=== PATIENT | male | born 1955 | race Caucasian/White ===

== ENCOUNTER → 2019-04-19 13:33 | Outpatient (CLI) | payer BC, SELFPAY ==
--- NOTE | 2019-04-19 | DI.RAD.S_ITS ---
PROCEDURE: XR SHOULDER LT MIN 2V INDICATIONS: Pain in left shoulder TECHNIQUE: 3 views of the shoulder were acquired. COMPARISON: None. FINDINGS: Bones: No fractures or dislocations. No suspicious bony lesions. Visualized ribs appear intact. Moderate AC joint degeneration. Glenohumeral degenerative spurring sclerosis. Soft tissues: Calcific tendinitis noted. IMPRESSION: Left shoulder joint degeneration as above Calcific tendinitis If the patient's pain or other symptoms persist, consider further evaluation with MRI Dictated by: Lavell Swan M.D. on 04/19/2019 at 16:35 Approved by: Lavell Swan M.D. on 04/19/2019 at 16:37
== END ==
DX: M25.512 Pain in left shoulder (principal); M75.32 Calcific tendinitis of left shoulder; M19.012 Primary osteoarthritis, left shoulder
CPT/HCPCS: 73030

== ENCOUNTER → 2022-10-30 09:28 | Outpatient (CLI) | payer MEDICARE, SELFPAY ==
--- NOTE | 2022-10-30 09:29 | DI.RAD.S_ITS ---
PROCEDURE: XR LUMBAR SPINE MIN 4V INDICATIONS: Low back pain w/sciatica for 5 months TECHNIQUE: 5 views of the lumbar spine were acquired, including bilateral oblique views. COMPARISON: None. FINDINGS: Bones: 6 lts-soz-amdstkw vertebrae are present. The 1st 5 jtn-tbr-ttulugx lumbar type vertebrae are referred as L1 through L5. The last nonrib lumbar-type vertebra is referred as transitional S1. There is normal bony alignment. No vertebral body compression fractures. No suspicious bony lesions. Mild degenerative disc and facet disease in lumbar spine. Soft tissues: Overlying bowel gas pattern is normal. No suspicious soft tissue calcifications. Oblique images: No pars defects. IMPRESSION: 1. Transitional anatomy is present. Please confer vertebral levels prior to interventional procedures or surgeries. 2. Mild degenerative disc and facet disease. Dictated by: Jono Torres M.D. on 10/30/2022 at 12:14 Approved by: Jono Torres M.D. on 10/30/2022 at 12:17
== END ==
PROVIDERS: PCP Family Medicine; Referring Provider Family Medicine; Visit Provider Family Medicine
DX: M51.16 Intervertebral disc disorders with radiculopathy, lumbar region (principal); M47.26 Other spondylosis with radiculopathy, lumbar region
CPT/HCPCS: 72110

== ENCOUNTER → 2022-12-20 11:08 | Outpatient (CLI) | payer MEDICARE, SELFPAY ==
--- NOTE | 2022-12-20 11:09 | DI.MRI.S_ITS ---
PROCEDURE: MR LUMBAR SPINE WO CON INDICATIONS: lower back pain TECHNIQUE: Noncontrast sagittal T1 spin echo and T2 fast echo, sagittal STIR, and T2 fast spin echo through the lumbar spine. In cases with scoliosis, additional coronal T2 fast spin echo may be performed. COMPARISON: [facility], CR, XR LUMBAR SPINE MIN 4V, 10/30/2022, 9:37. 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 Alignment: Mild straightening of normal lumbar lordosis. Marrow: No acute fracture. Cord: Terminates in normal position. Cauda equina nerve roots are unremarkable. Soft tissues: No retroperitoneal mass lesion or fluid collection identified. Specific levels: L1-L2: Mild facet arthropathy. No stenosis. L2-L3: Mild diffuse disc bulge. Mild facet arthropathy. No stenosis. L3-L4: Small diffuse disc bulge. Mild facet arthropathy. No stenosis. L4-L5: There is a xmnf-xs-xjfnuxiv diffuse disc bulge and central narrowing. Ygqy-py-wtzmoohs facet arthropathy. Mild narrowing of both subarticular recesses. Mild bilateral neural foraminal narrowing. L5-S1: Toia-bt-xssyomqd diffuse disc bulge. Superimposed left paracentral disc protrusion, significantly affecting the left subarticular recess, displacing the left traversing nerve root. Mild left neural foraminal narrowing. Annular fissure is present. 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 Please confirm numbering prior to any intervention. L5-S1 left paracentral disc protrusion displacing the traversing nerve root. Mild degenerative changes also seen elsewhere. Dictated by: Patrick Navarro M.D. on 12/22/2022 at 11:42 Approved by: Patrick Navarro M.D. on 12/22/2022 at 11:48
== END ==
PROVIDERS: Family Provider Family Medicine; PCP Family Medicine; Referring Provider Physical Medicine & Rehabilitation; Visit Provider Physical Medicine & Rehabilitation
DX: M51.17 Intervertebral disc disorders with radiculopathy, lumbosacral region (principal); M51.16 Intervertebral disc disorders with radiculopathy, lumbar region; M47.26 Other spondylosis with radiculopathy, lumbar region; M47.27 Other spondylosis with radiculopathy, lumbosacral region
CPT/HCPCS: 72148

== ENCOUNTER 2022-12-25 10:00 | Outpatient (RCR) | payer MEDICARE, SELFPAY ==
--- NOTE | 2022-11-12 09:44 | PT.OIE ---
Current Diagnoses Lumbago with sciatica, left side (11/12/22) Past Medical History (Last Updated 11/06/22 @ 20:51 by Jennifer Wilson) Herpes Past Surgical History (Last Updated 11/06/22 @ 20:51 by Jennifer Wilson) Anesthesia History of arthroscopic knee surgery (~1993) Visit Care Team Role Provider Type Isaac Ballesteros MD Attending Provider Physician Family Provider Primary Care Provider Referring Provider Specialty: [facility] Obstetrics Address: [address] [place] [address], [id number] Phone: Fax: Email: [email or web address] Physical Therapy Initial Evaluation PT-OP-A Visit Information Start: 11/12/22 08:47 Freq: Status: Active Protocol: Document 11/12/22 09:32 ED (Rec: 11/12/22 09:44 ED [id number]) Out-Patient Physical Therapy Visit Information Visit Information Visit Type Initial Evaluation Visit Start Time 09:00 Visit Stop Time 09:45 Total Visit Minutes 45 Visit Number 1 Evaluation Information Evaluation Date 11/12/22 PT-OP-B Current Condition Start: 11/12/22 08:47 Freq: Status: Active Protocol: Document 11/12/22 09:32 ED (Rec: 11/12/22 09:44 ED [id number]) Current Condition History of Current Condition Onset Date May Current Complaints low back pain History of Current Condition Pt states that he has had low back pain since around May 2022. He notes that the pain is constant and he spends a large part of his day lying down d/t back pain. He has tried acupuncture which helped somewhat but also the senior specialist told him to stop eating dairy and sugars as they are pro-inflammatory. Pt denies having tried any particular exercises at home for pain relief or rehabilitation purposes. he does endorse L radicular pain down the back of his leg and into his calf. He notes that he will notice those symptoms when he is standing for too long as well. PT-OP-C Subjective Start: 11/12/22 08:47 Freq: Status: Active Protocol: Document 11/12/22 09:32 ED (Rec: 11/12/22 09:44 ED [id number]) Patient Questionnaires Oswestry Low Back Index Oswestry Score 36 / 50 = 72.0 % Oswestry Impairment 60 to 79% Impaired (Score 60- 79) PT-OP-K Range of Motion Start: 11/12/22 08:47 Freq: Status: Active Protocol: Document 11/12/22 09:32 ED (Rec: 11/12/22 09:44 ED [id number]) Lumbar Spine Range of Motion Lumbar Spine Active Testing Position Sitting Flexion 35 Extension 5 ROM Limitations Pain PT-OP-L Special Tests Start: 11/12/22 08:47 Freq: Status: Active Protocol: Document 11/12/22 09:32 ED (Rec: 11/12/22 09:44 ED [id number]) Special Tests Lumbar Spine Special Tests Slump Test Results + PT-OP-T Assessment and Plan Start: 11/12/22 08:47 Freq: Status: Active Protocol: Document 11/12/22 09:32 ED (Rec: 11/12/22 09:44 ED [id number]) Physical Therapy Assessment Rehab Potential Rehabilitation Potential Good Evaluation Complexity Number of Personal Factors/Comorbidities 1-2 Number of Body Systems Impaired 1-2 Clinical Presentation at Evaluation Stable Impairments Impairments Functional Activities,Gait, Pain,ROM,Strength,Transfers Goals Oswestry Impairment oswestry Worm Packer Goal (LTG) Pt will improve Oswestry score by >10 points to a score <26/ 50. LTG Duration 6-8 weeks walking tolerance Impairment walking toleranc Short Term Goal (STG) Pt will be able to ambulate for 10 consecutive minutes c/o low back symptoms. STG Duration 3 weeks Detention Goal (LTG) Pt will be able to ambulate for 20 consecutive minutes c/o low back symptoms. LTG Duration 6-8 weeks % improvement Impairment % improvement Short Term Goal (STG) Pt will report 15% improvement in low back pain intensity/ frequency. STG Duration 3 weeks Detention Goal (LTG) Pt will report 50% improvement in low back pain intensity/ frequency. LTG Duration 6-8 weeks HEP Impairment HEP Short Term Goal (STG) Pt will report performing HEP >4 days/week. STG Duration 3 weeks Worm Packer Goal (LTG) Pt will report performing HEP >4 days/week. LTG Duration 6-8 weeks Assessment Summary Assessment Pt reported to PT for chronic back pain that started around May. The pain has impacted his functional mobility and he is spending a larger portion of his day sedentary. Per subjective reports, it does sound like a disc herniation which has also resulted in radiculopathy down his leg at times. PT and patient spoke at length regarding low back pain and conservative management of it including graded exercise within his tolerance. PT provided initial HEP of : short and frequent walking, hip bridges, seated lumbar flexion, and sciatic nerve glides which he was able to perform today c/o irritation. Physical Therapy Plan Frequency and Duration Frequency of Treatment 2x/Week Duration of treatment (weeks) 10 Plan of Care Start Date 11/12/22 Plan of Care End Date 02/10/23 Therapeutic Interventions Therapeutic Interventions Gait Training,Home Exercise Program,Joint Mobilizations, Manual Therapy,Neuromuscular Re-education,Orthotic/ Prosthetic Management,Patient/ Caregiver Education,Self-Care/ Home Management,Soft Tissue Mobilization,Taping, Therapeutic Activities, Therapeutic Exercises Modalities Biofeedback,Cold Pack/Ice Massage,Electric Stimulation, Hot Packs,Ultrasound Next Visit Focus/Plan Next Note Type Treatment Note Next Visit Plan TM, HEP ( bridge, sciatic glides, lumbar flexion), sit<> stands, standing extension, rows, walk
--- NOTE | 2022-11-12 09:44 | PT.OPPOC ---
Physical, Occupational & Speech Therapy At [facility] Current Diagnoses Lumbago with sciatica, left side (11/12/22) Visit Care Team Role Provider Type Isaac Ballesteros MD Attending Provider Physician Family Provider Primary Care Provider Referring Provider Specialty: Family Practice Obstetrics Address: [facility] [place] [place], [address] Phone: Fax: Email: [email or web address] Plan Of Care PT-OP-T Assessment and Plan Start: 11/12/22 08:47 Freq: Status: Active Protocol: Document 11/12/22 09:32 ED (Rec: 11/12/22 09:44 ED [id number]) Physical Therapy Assessment Rehab Potential Rehabilitation Potential Good Evaluation Complexity Number of Personal Factors/Comorbidities 1-2 Number of Body Systems Impaired 1-2 Clinical Presentation at Evaluation Stable Impairments Impairments Functional Activities,Gait, Pain,ROM,Strength,Transfers Goals Oswestry Impairment oswestry Director Of Cardiopulmonary Services Goal (LTG) Pt will improve Oswestry score by >10 points to a score <26/ 50. LTG Duration 6-8 weeks walking tolerance Impairment walking toleranc Short Term Goal (STG) Pt will be able to ambulate for 10 consecutive minutes c/o low back symptoms. STG Duration 3 weeks Director Of Cardiopulmonary Services Goal (LTG) Pt will be able to ambulate for 20 consecutive minutes c/o low back symptoms. LTG Duration 6-8 weeks % improvement Impairment % improvement Short Term Goal (STG) Pt will report 15% improvement in low back pain intensity/ frequency. STG Duration 3 weeks Director Of Cardiopulmonary Services Goal (LTG) Pt will report 50% improvement in low back pain intensity/ frequency. LTG Duration 6-8 weeks HEP Impairment HEP Short Term Goal (STG) Pt will report performing HEP >4 days/week. STG Duration 3 weeks Director Of Cardiopulmonary Services Goal (LTG) Pt will report performing HEP >4 days/week. LTG Duration 6-8 weeks Assessment Summary Assessment Pt reported to PT for chronic back pain that started around May. The pain has impacted his functional mobility and he is spending a larger portion of his day sedentary. Per subjective reports, it does sound like a disc herniation which has also resulted in radiculopathy down his leg at times. PT and patient spoke at length regarding low back pain and conservative management of it including graded exercise within his tolerance. PT provided initial HEP of : short and frequent walking, hip bridges, seated lumbar flexion, and sciatic nerve glides which he was able to perform today c/o irritation. Physical Therapy Plan Frequency and Duration Frequency of Treatment 2x/Week Duration of treatment (weeks) 10 Plan of Care Start Date 11/12/22 Plan of Care End Date 02/10/23 Therapeutic Interventions Therapeutic Interventions Gait Training,Home Exercise Program,Joint Mobilizations, Manual Therapy,Neuromuscular Re-education,Orthotic/ Prosthetic Management,Patient/ Caregiver Education,Self-Care/ Home Management,Soft Tissue Mobilization,Taping, Therapeutic Activities, Therapeutic Exercises Modalities Biofeedback,Cold Pack/Ice Massage,Electric Stimulation, Hot Packs,Ultrasound Next Visit Focus/Plan Next Note Type Treatment Note Next Visit Plan TM, HEP ( bridge, sciatic glides, lumbar flexion), sit<> stands, standing extension, rows, walk Plan of Care Dates Plan of Care Start Date 11/12/22 Plan of Care End Date 02/10/23 Electronically Signed by: Cameron Wilson, PT 11/12/22 0944 If you are in agreement with this Plan of Care, please return a signed and dated copy. I have reviewed this Plan of Care and certify that the skilled therapy services above are required to meet the patient?s needs. Physician Signature Date Printed Name and Credentials Clinical Instructor Signature Printed Name and Credentials
--- NOTE | 2022-11-19 09:51 | PT.OTN ---
Current Diagnoses Lumbago with sciatica, left side (11/19/22) Physical Therapy Treatment Note PT-OP-A Visit Information Start: 11/12/22 08:47 Freq: Status: Active Protocol: Document 11/19/22 09:48 ED (Rec: 11/19/22 09:51 ED [id number]) Out-Patient Physical Therapy Visit Information Visit Information Visit Type Treatment Note Visit Note 03/28 Visit Start Time 09:00 Visit Stop Time 09:45 Total Visit Minutes 45 Visit Number 2 PT-OP-B Current Condition Start: 11/12/22 08:47 Freq: Status: Active Protocol: Document 11/12/22 09:32 ED (Rec: 11/12/22 09:44 ED [id number]) Current Condition History of Current Condition Onset Date May Current Complaints low back pain History of Current Condition Pt states that he has had low back pain since around May 2022. He notes that the pain is constant and he spends a large part of his day lying down d/t back pain. He has tried acupuncture which helped somewhat but also the jigger machine operator told him to stop eating dairy and sugars as they are pro-inflammatory. Pt denies having tried any particular exercises at home for pain relief or rehabilitation purposes. he does endorse L radicular pain down the back of his leg and into his calf. He notes that he will notice those symptoms when he is standing for too long as well. PT-OP-C Subjective Start: 11/12/22 08:47 Freq: Status: Active Protocol: Document 11/19/22 09:48 ED (Rec: 11/19/22 09:51 ED [id number]) OP-PT Subjective Patient Comments Patient Comments Pt states that he has been doing his HEP. Notes pain and difficulty c/ hip bridges. PT-OP-K Range of Motion Start: 11/12/22 08:47 Freq: Status: Active Protocol: Document 11/12/22 09:32 ED (Rec: 11/12/22 09:44 ED [id number]) Lumbar Spine Range of Motion Lumbar Spine Active Testing Position Sitting Flexion 35 Extension 5 ROM Limitations Pain PT-OP-L Special Tests Start: 11/12/22 08:47 Freq: Status: Active Protocol: Document 11/12/22 09:32 ED (Rec: 11/12/22 09:44 ED [id number]) Special Tests Lumbar Spine Special Tests Slump Test Results + PT-OP-Q Treatments Start: 11/12/22 08:47 Freq: Status: Active Protocol: Document 11/19/22 09:48 ED (Rec: 11/19/22 09:51 ED [id number]) Cardio Equipment Treadmill Duration (Minutes) 5 Speed 4 Incline 1.8 Other beginning & end Therapeutic Exercises Supine Exercises PB flexion Reps/Minutes 2x10 hip bridge Reps/Minutes [id number] Sitting Exercises lat pull down Resistance L3 Reps/Minutes 7u64-31 PB lumbar flexion Equipment Used PB Reps/Minutes 6u46-86 Therapeutic Activity Therapeutic Activity squat Reps/Minutes 7v14-23 PT-OP-T Assessment and Plan Start: 11/12/22 08:47 Freq: Status: Active Protocol: Document 11/19/22 09:48 ED (Rec: 11/19/22 09:51 ED [id number]) Physical Therapy Assessment Goals Oswestry Impairment oswestry Coater Slate Goal (LTG) Pt will improve Oswestry score by >10 points to a score <26/ 50. LTG Duration 6-8 weeks walking tolerance Impairment walking toleranc Short Term Goal (STG) Pt will be able to ambulate for 10 consecutive minutes c/o low back symptoms. STG Duration 3 weeks Usp Goal (LTG) Pt will be able to ambulate for 20 consecutive minutes c/o low back symptoms. LTG Duration 6-8 weeks % improvement Impairment % improvement Short Term Goal (STG) Pt will report 15% improvement in low back pain intensity/ frequency. STG Duration 3 weeks Usp Goal (LTG) Pt will report 50% improvement in low back pain intensity/ frequency. LTG Duration 6-8 weeks HEP Impairment HEP Short Term Goal (STG) Pt will report performing HEP >4 days/week. STG Duration 3 weeks Coater Slate Goal (LTG) Pt will report performing HEP >4 days/week. LTG Duration 6-8 weeks Assessment Summary Assessment Pt able to perform hip bridges with reduced ROM today; he was likely limited in ability at home as he was doing it on his bed. He had some short lasting pain during the initial reps of many exercises today but was later able to them c/o pain. Physical Therapy Plan Frequency and Duration Frequency of Treatment 2x/Week Duration of treatment (weeks) 10 Plan of Care Start Date 11/12/22 Plan of Care End Date 12/26/23 Therapeutic Interventions Therapeutic Interventions Gait Training,Home Exercise Program,Joint Mobilizations, Manual Therapy,Neuromuscular Re-education,Orthotic/ Prosthetic Management,Patient/ Caregiver Education,Self-Care/ Home Management,Soft Tissue Mobilization,Taping, Therapeutic Activities, Therapeutic Exercises Modalities Biofeedback,Cold Pack/Ice Massage,Electric Stimulation, Hot Packs,Ultrasound Next Visit Focus/Plan Next Note Type Treatment Note Next Visit Plan TM, HEP ( bridge, sciatic glides, lumbar flexion), sit<> stands, standing extension, rows, walk
--- NOTE | 2022-11-25 10:41 | PT.OTN ---
Current Diagnoses Lumbago with sciatica, left side (11/25/22) Physical Therapy Treatment Note PT-OP-A Visit Information Start: 11/12/22 08:47 Freq: Status: Active Protocol: Document 11/25/22 10:34 ED (Rec: 11/25/22 10:41 ED [id number]) Out-Patient Physical Therapy Visit Information Visit Information Visit Type Treatment Note Visit Note 04/25 Visit Start Time 09:55 Visit Stop Time 10:35 Total Visit Minutes 40 Visit Number 3 PT-OP-B Current Condition Start: 11/12/22 08:47 Freq: Status: Active Protocol: Document 11/12/22 09:32 ED (Rec: 11/12/22 09:44 ED [id number]) Current Condition History of Current Condition Onset Date May Current Complaints low back pain History of Current Condition Pt states that he has had low back pain since around May 2022. He notes that the pain is constant and he spends a large part of his day lying down d/t back pain. He has tried acupuncture which helped somewhat but also the manager express told him to stop eating dairy and sugars as they are pro-inflammatory. Pt denies having tried any particular exercises at home for pain relief or rehabilitation purposes. he does endorse L radicular pain down the back of his leg and into his calf. He notes that he will notice those symptoms when he is standing for too long as well. PT-OP-C Subjective Start: 11/12/22 08:47 Freq: Status: Active Protocol: Document 11/25/22 10:34 ED (Rec: 11/25/22 10:41 ED [id number]) OP-PT Subjective Patient Comments Patient Comments Pt states that he had discomfort the day following PT last week; he states his quadriceps were very sore. Pt feels like his hips are out of alignment and that's why his back hurts and he has radiculopathy. PT-OP-K Range of Motion Start: 11/12/22 08:47 Freq: Status: Active Protocol: Document 11/12/22 09:32 ED (Rec: 11/12/22 09:44 ED [id number]) Lumbar Spine Range of Motion Lumbar Spine Active Testing Position Sitting Flexion 35 Extension 5 ROM Limitations Pain PT-OP-L Special Tests Start: 11/12/22 08:47 Freq: Status: Active Protocol: Document 11/12/22 09:32 ED (Rec: 11/12/22 09:44 ED [id number]) Special Tests Lumbar Spine Special Tests Slump Test Results + PT-OP-Q Treatments Start: 11/12/22 08:47 Freq: Status: Active Protocol: Document 11/25/22 10:34 ED (Rec: 11/25/22 10:41 ED [id number]) Cardio Equipment Treadmill Duration (Minutes) 5 Speed 4 Incline 1.8 Other beginning & end Therapeutic Exercises Supine Exercises PB flexion Reps/Minutes 2x10 hip bridge Reps/Minutes 1w90-60 Sitting Exercises PB lumbar flexion Equipment Used PB Reps/Minutes 9s35-01 Therapeutic Activity Therapeutic Activity hip hinge Name RDL to 8'' platform Reps/Minutes 1x12 Comments 7# squat Reps/Minutes [id number] Comments hugging basketball PT-OP-T Assessment and Plan Start: 11/12/22 08:47 Freq: Status: Active Protocol: Document 11/25/22 10:34 ED (Rec: 11/25/22 10:41 ED [id number]) Physical Therapy Assessment Goals Oswestry Impairment oswestry Reed Polisher Goal (LTG) Pt will improve Oswestry score by >10 points to a score <26/ 50. LTG Duration 6-8 weeks walking tolerance Impairment walking toleranc Short Term Goal (STG) Pt will be able to ambulate for 10 consecutive minutes c/o low back symptoms. STG Duration 3 weeks Reed Polisher Goal (LTG) Pt will be able to ambulate for 20 consecutive minutes c/o low back symptoms. LTG Duration 6-8 weeks % improvement Impairment % improvement Short Term Goal (STG) Pt will report 15% improvement in low back pain intensity/ frequency. STG Duration 3 weeks Reed Polisher Goal (LTG) Pt will report 50% improvement in low back pain intensity/ frequency. LTG Duration 6-8 weeks HEP Impairment HEP Short Term Goal (STG) Pt will report performing HEP >4 days/week. STG Duration 3 weeks Detention Goal (LTG) Pt will report performing HEP >4 days/week. LTG Duration 6-8 weeks Assessment Summary Assessment Pt performed exercises similar to last session which I anticipate will result in less muscle soreness in following day. Pt does exhibit learned behavior towards passive modalities for musculoskeletal care such as cupping and dry needling which may impact his outlook of PT being helpful for back pain. Pt does show decreased ability for thoracolumbar rotation as he log rolls during bed mobility. Physical Therapy Plan Frequency and Duration Frequency of Treatment 2x/Week Duration of treatment (weeks) 10 Plan of Care Start Date 11/12/22 Plan of Care End Date 02/10/23 Therapeutic Interventions Therapeutic Interventions Gait Training,Home Exercise Program,Joint Mobilizations, Manual Therapy,Neuromuscular Re-education,Orthotic/ Prosthetic Management,Patient/ Caregiver Education,Self-Care/ Home Management,Soft Tissue Mobilization,Taping, Therapeutic Activities, Therapeutic Exercises Modalities Biofeedback,Cold Pack/Ice Massage,Electric Stimulation, Hot Packs,Ultrasound Next Visit Focus/Plan Next Note Type Treatment Note Next Visit Plan TM, HEP ( bridge, sciatic glides, lumbar flexion), sit<> stands, standing extension, rows, walk
--- NOTE | 2022-11-27 10:51 | PT.OTN ---
Current Diagnoses Lumbago with sciatica, left side (11/27/22) Physical Therapy Treatment Note PT-OP-A Visit Information Start: 11/12/22 08:47 Freq: Status: Active Protocol: Document 11/27/22 10:43 ED (Rec: 11/27/22 10:51 ED [id number]) Out-Patient Physical Therapy Visit Information Visit Information Visit Type Treatment Note Visit Note 05/26 Visit Start Time 10:00 Visit Stop Time 10:45 Total Visit Minutes 45 Visit Number 4 PT-OP-B Current Condition Start: 11/12/22 08:47 Freq: Status: Active Protocol: Document 11/12/22 09:32 ED (Rec: 11/12/22 09:44 ED [id number]) Current Condition History of Current Condition Onset Date May Current Complaints low back pain History of Current Condition Pt states that he has had low back pain since around May 2022. He notes that the pain is constant and he spends a large part of his day lying down d/t back pain. He has tried acupuncture which helped somewhat but also the spring forger told him to stop eating dairy and sugars as they are pro-inflammatory. Pt denies having tried any particular exercises at home for pain relief or rehabilitation purposes. he does endorse L radicular pain down the back of his leg and into his calf. He notes that he will notice those symptoms when he is standing for too long as well. PT-OP-C Subjective Start: 11/12/22 08:47 Freq: Status: Active Protocol: Document 11/27/22 10:43 ED (Rec: 11/27/22 10:51 ED [id number]) OP-PT Subjective Patient Comments Patient Comments Pt unsure if he wants to continue with physical therapy . States he saw his PCP and is now scheduled for an MRI. He has a consultation with a back pain specialist as well. PT-OP-K Range of Motion Start: 11/12/22 08:47 Freq: Status: Active Protocol: Document 11/12/22 09:32 ED (Rec: 11/12/22 09:44 ED [id number]) Lumbar Spine Range of Motion Lumbar Spine Active Testing Position Sitting Flexion 35 Extension 5 ROM Limitations Pain PT-OP-L Special Tests Start: 11/12/22 08:47 Freq: Status: Active Protocol: Document 11/12/22 09:32 ED (Rec: 11/12/22 09:44 ED [id number]) Special Tests Lumbar Spine Special Tests Slump Test Results + PT-OP-Q Treatments Start: 11/12/22 08:47 Freq: Status: Active Protocol: Document 11/27/22 10:43 ED (Rec: 11/27/22 10:51 ED [id number]) Cardio Equipment Treadmill Duration (Minutes) 5 Speed 4 Incline 1.8 Other beginning Therapeutic Exercises Supine Exercises LTR Reps/Minutes 2x10 PB flexion Reps/Minutes 4x10 hip bridge Reps/Minutes [id number] Prone Exercises quadruped hip stretch Prone Exercise Name post hip capsule stretch Reps/Minutes 2x30'' press up <> chetan pose Reps/Minutes 2x10 Sitting Exercises lat pull down Resistance L3 Reps/Minutes 2y21-84 PB lumbar flexion Equipment Used PB Reps/Minutes 2n17-03 Standing Exercises hip flexion Standing Exercise Name banded hip flexion Resistance yllw loop Reps/Minutes 1x8/leg Therapeutic Activity Therapeutic Activity hip hinge Name RDL to 4'' platform Reps/Minutes 2x10 Comments small ball PT-OP-T Assessment and Plan Start: 11/12/22 08:47 Freq: Status: Active Protocol: Document 11/27/22 10:43 ED (Rec: 11/27/22 10:51 ED [id number]) Physical Therapy Assessment Goals Oswestry Impairment oswestry Passenger Solicitor Goal (LTG) Pt will improve Oswestry score by >10 points to a score <26/ 50. LTG Duration 6-8 weeks walking tolerance Impairment walking toleranc Short Term Goal (STG) Pt will be able to ambulate for 10 consecutive minutes c/o low back symptoms. STG Duration 3 weeks Prison Goal (LTG) Pt will be able to ambulate for 20 consecutive minutes c/o low back symptoms. LTG Duration 6-8 weeks % improvement Impairment % improvement Short Term Goal (STG) Pt will report 15% improvement in low back pain intensity/ frequency. STG Duration 3 weeks Prison Goal (LTG) Pt will report 50% improvement in low back pain intensity/ frequency. LTG Duration 6-8 weeks HEP Impairment HEP Short Term Goal (STG) Pt will report performing HEP >4 days/week. STG Duration 3 weeks Passenger Solicitor Goal (LTG) Pt will report performing HEP >4 days/week. LTG Duration 6-8 weeks Assessment Summary Assessment At conclusion of PT today, patient stated that he was happy with the progressions in the exercise and would like to schedule additional visits. pt is displaying fear avoidance behaviors and kinesiophobia in regards to moving the back. PT has slowly progressed patient in exposure to these movement patterns such as lumbopelvic extension and rotation. Pt surprised by his ability to perform LTRs today. he seems to have a better understanding of rehabilitation process now . Physical Therapy Plan Frequency and Duration Frequency of Treatment 2x/Week Duration of treatment (weeks) 10 Plan of Care Start Date 11/12/22 Plan of Care End Date 02/10/23 Therapeutic Interventions Therapeutic Interventions Gait Training,Home Exercise Program,Joint Mobilizations, Manual Therapy,Neuromuscular Re-education,Orthotic/ Prosthetic Management,Patient/ Caregiver Education,Self-Care/ Home Management,Soft Tissue Mobilization,Taping, Therapeutic Activities, Therapeutic Exercises Modalities Biofeedback,Cold Pack/Ice Massage,Electric Stimulation, Hot Packs,Ultrasound Next Visit Focus/Plan Next Note Type Treatment Note Next Visit Plan TM, HEP ( bridge, sciatic glides, lumbar flexion), sit<> stands, standing extension, rows, walk
--- NOTE | 2022-12-05 08:57 | PT.OTN ---
Current Diagnoses Lumbago with sciatica, left side (12/05/22) Physical Therapy Treatment Note PT-OP-A Visit Information Start: 11/12/22 08:47 Freq: Status: Active Protocol: Document 12/05/22 08:52 ED (Rec: 12/05/22 08:57 ED [id number]) Out-Patient Physical Therapy Visit Information Visit Information Visit Type Treatment Note Visit Note 06/25 Visit Start Time 08:15 Visit Stop Time 08:55 Total Visit Minutes 40 Visit Number 5 PT-OP-B Current Condition Start: 11/12/22 08:47 Freq: Status: Active Protocol: Document 11/12/22 09:32 ED (Rec: 11/12/22 09:44 ED [id number]) Current Condition History of Current Condition Onset Date May Current Complaints low back pain History of Current Condition Pt states that he has had low back pain since around May 2022. He notes that the pain is constant and he spends a large part of his day lying down d/t back pain. He has tried acupuncture which helped somewhat but also the apiculturist told him to stop eating dairy and sugars as they are pro-inflammatory. Pt denies having tried any particular exercises at home for pain relief or rehabilitation purposes. he does endorse L radicular pain down the back of his leg and into his calf. He notes that he will notice those symptoms when he is standing for too long as well. PT-OP-C Subjective Start: 11/12/22 08:47 Freq: Status: Active Protocol: Document 12/05/22 08:52 ED (Rec: 12/05/22 08:57 ED [id number]) OP-PT Subjective Patient Comments Patient Comments Pt states that he is still having glute tightness and his L hip feels like it wants to pop out. He states he doesn't like the bridges b/c it makes his glutes even tighter. Is wanting to get an MRI. PT-OP-K Range of Motion Start: 11/12/22 08:47 Freq: Status: Active Protocol: Document 11/12/22 09:32 ED (Rec: 11/12/22 09:44 ED [id number]) Lumbar Spine Range of Motion Lumbar Spine Active Testing Position Sitting Flexion 35 Extension 5 ROM Limitations Pain PT-OP-L Special Tests Start: 11/12/22 08:47 Freq: Status: Active Protocol: Document 11/12/22 09:32 ED (Rec: 11/12/22 09:44 ED [id number]) Special Tests Lumbar Spine Special Tests Slump Test Results + PT-OP-Q Treatments Start: 11/12/22 08:47 Freq: Status: Active Protocol: Document 12/05/22 08:52 ED (Rec: 12/05/22 08:57 ED [id number]) Cardio Equipment Elliptical Duration (Minutes) 5 Resistance 5 Treadmill Duration (Minutes) 5 Speed 4 Incline 1.8 Other beginning Therapeutic Exercises Sitting Exercises PB lumbar flexion Equipment Used PB Reps/Minutes 0n20-04 Standing Exercises row Standing Exercise Name unilateral row Resistance L4 Equipment Used cable column Reps/Minutes 4x10 Therapeutic Activity Therapeutic Activity hip hinge Name RDL to 4'' platform Reps/Minutes 4x10 Comments 10# B stance RDL c/ small tball PT-OP-T Assessment and Plan Start: 11/12/22 08:47 Freq: Status: Active Protocol: Document 12/05/22 08:52 ED (Rec: 12/05/22 08:57 ED [id number]) Physical Therapy Assessment Goals Oswestry Impairment oswestry Mission Coordinator Goal (LTG) Pt will improve Oswestry score by >10 points to a score <26/ 50. LTG Duration 6-8 weeks walking tolerance Impairment walking toleranc Short Term Goal (STG) Pt will be able to ambulate for 10 consecutive minutes c/o low back symptoms. STG Duration 3 weeks Mission Coordinator Goal (LTG) Pt will be able to ambulate for 20 consecutive minutes c/o low back symptoms. LTG Duration 6-8 weeks % improvement Impairment % improvement Short Term Goal (STG) Pt will report 15% improvement in low back pain intensity/ frequency. STG Duration 3 weeks Snf Goal (LTG) Pt will report 50% improvement in low back pain intensity/ frequency. LTG Duration 6-8 weeks HEP Impairment HEP Short Term Goal (STG) Pt will report performing HEP >4 days/week. STG Duration 3 weeks Mission Coordinator Goal (LTG) Pt will report performing HEP >4 days/week. LTG Duration 6-8 weeks Assessment Summary Assessment Worked on more back and hip hinging movements to desensitize patient to forward flexion with and without external loading. Pt still sensitive to lumbopelvic extension movement; states that it makes his L leg tingle . Otherwise patient able to do all movements today without pain. Physical Therapy Plan Frequency and Duration Frequency of Treatment 2x/Week Duration of treatment (weeks) 10 Plan of Care Start Date 11/12/22 Plan of Care End Date 02/10/23 Therapeutic Interventions Therapeutic Interventions Gait Training,Home Exercise Program,Joint Mobilizations, Manual Therapy,Neuromuscular Re-education,Orthotic/ Prosthetic Management,Patient/ Caregiver Education,Self-Care/ Home Management,Soft Tissue Mobilization,Taping, Therapeutic Activities, Therapeutic Exercises Modalities Biofeedback,Cold Pack/Ice Massage,Electric Stimulation, Hot Packs,Ultrasound Next Visit Focus/Plan Next Note Type Treatment Note Next Visit Plan TM, HEP ( bridge, sciatic glides, lumbar flexion), sit<> stands, standing extension, rows, walk
--- NOTE | 2022-12-10 09:47 | PT.OTN ---
Current Diagnoses Lumbago with sciatica, left side (12/10/22) Physical Therapy Treatment Note PT-OP-A Visit Information Start: 11/12/22 08:47 Freq: Status: Active Protocol: Document 12/10/22 09:43 ED (Rec: 12/10/22 09:47 ED [id number]) Out-Patient Physical Therapy Visit Information Visit Information Visit Type Treatment Note Visit Note 07/26 Visit Start Time 09:00 Visit Stop Time 09:45 Total Visit Minutes 45 Visit Number 6 PT-OP-B Current Condition Start: 11/12/22 08:47 Freq: Status: Active Protocol: Document 11/12/22 09:32 ED (Rec: 11/12/22 09:44 ED [id number]) Current Condition History of Current Condition Onset Date May Current Complaints low back pain History of Current Condition Pt states that he has had low back pain since around May 2022. He notes that the pain is constant and he spends a large part of his day lying down d/t back pain. He has tried acupuncture which helped somewhat but also the certified surgical tech/first assistant told him to stop eating dairy and sugars as they are pro-inflammatory. Pt denies having tried any particular exercises at home for pain relief or rehabilitation purposes. he does endorse L radicular pain down the back of his leg and into his calf. He notes that he will notice those symptoms when he is standing for too long as well. PT-OP-C Subjective Start: 11/12/22 08:47 Freq: Status: Active Protocol: Document 12/10/22 09:43 ED (Rec: 12/10/22 09:47 ED [id number]) OP-PT Subjective Patient Comments Patient Comments Pt states that his back is feeling better. His left hip, which has had on and off again pain for a while, is more symptomatic recently. PT-OP-K Range of Motion Start: 11/12/22 08:47 Freq: Status: Active Protocol: Document 11/12/22 09:32 ED (Rec: 11/12/22 09:44 ED [id number]) Lumbar Spine Range of Motion Lumbar Spine Active Testing Position Sitting Flexion 35 Extension 5 ROM Limitations Pain PT-OP-L Special Tests Start: 11/12/22 08:47 Freq: Status: Active Protocol: Document 11/12/22 09:32 ED (Rec: 11/12/22 09:44 ED [id number]) Special Tests Lumbar Spine Special Tests Slump Test Results + PT-OP-Q Treatments Start: 11/12/22 08:47 Freq: Status: Active Protocol: Document 12/10/22 09:43 ED (Rec: 12/10/22 09:47 ED [id number]) Cardio Equipment Treadmill Duration (Minutes) 5 Speed 4 Incline 1.8 Other beginning Therapeutic Exercises Prone Exercises quadruped hip stretch Prone Exercise Name post hip capsule stretch Reps/Minutes 2x30'' press up <> chetan pose Reps/Minutes 2x10 Sitting Exercises lat pull down Resistance L3 Reps/Minutes 0g29-80 PB lumbar flexion Equipment Used PB Reps/Minutes 8k15-52 Standing Exercises banded walk Standing Exercise Name lateral banded walk Resistance turquoise loop band Reps/Minutes 3x[address] row Standing Exercise Name unilateral row Resistance L4 Equipment Used cable column Reps/Minutes 4x10 Therapeutic Activity Therapeutic Activity hip hinge Name RDL to 4'' platform Reps/Minutes 4x10 Comments 10# PT-OP-T Assessment and Plan Start: 11/12/22 08:47 Freq: Status: Active Protocol: Document 12/10/22 09:43 ED (Rec: 12/10/22 09:47 ED [id number]) Physical Therapy Assessment Goals Oswestry Impairment oswestry Care Home Goal (LTG) Pt will improve Oswestry score by >10 points to a score <26/ 50. LTG Duration 6-8 weeks walking tolerance Impairment walking toleranc Short Term Goal (STG) Pt will be able to ambulate for 10 consecutive minutes c/o low back symptoms. STG Duration 3 weeks Care Home Goal (LTG) Pt will be able to ambulate for 20 consecutive minutes c/o low back symptoms. LTG Duration 6-8 weeks % improvement Impairment % improvement Short Term Goal (STG) Pt will report 15% improvement in low back pain intensity/ frequency. STG Duration 3 weeks Human Relations Professor Goal (LTG) Pt will report 50% improvement in low back pain intensity/ frequency. LTG Duration 6-8 weeks HEP Impairment HEP Short Term Goal (STG) Pt will report performing HEP >4 days/week. STG Duration 3 weeks Care Home Goal (LTG) Pt will report performing HEP >4 days/week. LTG Duration 6-8 weeks Assessment Summary Assessment Pt able to perform all movements today without pain or discomfort in back. Pt demonstrating ability to go through full ROM of flexion and extension of lumbar spine. Each session has been progressed from previous session and patient has had no increases in pain from exercise progressions. Physical Therapy Plan Frequency and Duration Frequency of Treatment 2x/Week Duration of treatment (weeks) 10 Plan of Care Start Date 11/12/22 Plan of Care End Date 02/10/23 Therapeutic Interventions Therapeutic Interventions Gait Training,Home Exercise Program,Joint Mobilizations, Manual Therapy,Neuromuscular Re-education,Orthotic/ Prosthetic Management,Patient/ Caregiver Education,Self-Care/ Home Management,Soft Tissue Mobilization,Taping, Therapeutic Activities, Therapeutic Exercises Modalities Biofeedback,Cold Pack/Ice Massage,Electric Stimulation, Hot Packs,Ultrasound Next Visit Focus/Plan Next Note Type Treatment Note Next Visit Plan TM, HEP ( bridge, sciatic glides, lumbar flexion), sit<> stands, standing extension, rows, walk
--- NOTE | 2022-12-12 09:41 | PT.OTN ---
Current Diagnoses Lumbago with sciatica, left side (12/12/22) Physical Therapy Treatment Note PT-OP-A Visit Information Start: 11/12/22 08:47 Freq: Status: Active Protocol: Document 12/12/22 09:37 ED (Rec: 12/12/22 09:40 ED [id number]) Out-Patient Physical Therapy Visit Information Visit Information Visit Type Treatment Note Visit Note 08/25 Visit Start Time 09:00 Visit Stop Time 09:40 Total Visit Minutes 40 Visit Number 7 PT-OP-B Current Condition Start: 11/12/22 08:47 Freq: Status: Active Protocol: Document 11/12/22 09:32 ED (Rec: 11/12/22 09:44 ED [id number]) Current Condition History of Current Condition Onset Date May Current Complaints low back pain History of Current Condition Pt states that he has had low back pain since around May 2022. He notes that the pain is constant and he spends a large part of his day lying down d/t back pain. He has tried acupuncture which helped somewhat but also the inspector rough castings told him to stop eating dairy and sugars as they are pro-inflammatory. Pt denies having tried any particular exercises at home for pain relief or rehabilitation purposes. he does endorse L radicular pain down the back of his leg and into his calf. He notes that he will notice those symptoms when he is standing for too long as well. PT-OP-C Subjective Start: 11/12/22 08:47 Freq: Status: Active Protocol: Document 12/12/22 09:37 ED (Rec: 12/12/22 09:40 ED [id number]) OP-PT Subjective Patient Comments Patient Comments Pt reports his back feeling better and has more L hip pain than anything. notes that the radiculopathy he was feeling has improved as well. He has an appointment with a back specialist sometime next week. Is unsure if he wants more PT after next week. PT-OP-K Range of Motion Start: 11/12/22 08:47 Freq: Status: Active Protocol: Document 11/12/22 09:32 ED (Rec: 11/12/22 09:44 ED [id number]) Lumbar Spine Range of Motion Lumbar Spine Active Testing Position Sitting Flexion 35 Extension 5 ROM Limitations Pain PT-OP-L Special Tests Start: 11/12/22 08:47 Freq: Status: Active Protocol: Document 11/12/22 09:32 ED (Rec: 11/12/22 09:44 ED [id number]) Special Tests Lumbar Spine Special Tests Slump Test Results + PT-OP-Q Treatments Start: 11/12/22 08:47 Freq: Status: Active Protocol: Document 12/12/22 09:37 ED (Rec: 12/12/22 09:40 ED [id number]) Cardio Equipment Treadmill Duration (Minutes) 5 Speed 4 Incline 1.8 Other beginning Therapeutic Exercises Supine Exercises leg press Supine Exercise Name leg press Resistance 50# Equipment Used leg press Reps/Minutes 2x20 Comments unilateral Sitting Exercises row Sitting Exercise Name cable row Resistance L3 Equipment Used row machine Reps/Minutes 3x15 PB lumbar flexion Equipment Used PB Reps/Minutes 4m02-27 Therapeutic Activity Therapeutic Activity step ups Name step ups Reps/Minutes 3x10 Comments 10# no UE assist squat Name sumo squat Reps/Minutes 1x15 Comments 10# to 4'' box PT-OP-T Assessment and Plan Start: 11/12/22 08:47 Freq: Status: Active Protocol: Document 12/12/22 09:37 ED (Rec: 12/12/22 09:40 ED [id number]) Physical Therapy Assessment Goals Oswestry Impairment oswestry Director Of Labor And Delivery Goal (LTG) Pt will improve Oswestry score by >10 points to a score <26/ 50. LTG Duration 6-8 weeks walking tolerance Impairment walking toleranc Short Term Goal (STG) Pt will be able to ambulate for 10 consecutive minutes c/o low back symptoms. STG Duration 3 weeks Assisted Goal (LTG) Pt will be able to ambulate for 20 consecutive minutes c/o low back symptoms. LTG Duration 6-8 weeks % improvement Impairment % improvement Short Term Goal (STG) Pt will report 15% improvement in low back pain intensity/ frequency. STG Duration 3 weeks Assisted Goal (LTG) Pt will report 50% improvement in low back pain intensity/ frequency. LTG Duration 6-8 weeks HEP Impairment HEP Short Term Goal (STG) Pt will report performing HEP >4 days/week. STG Duration 3 weeks Assisted Goal (LTG) Pt will report performing HEP >4 days/week. LTG Duration 6-8 weeks Assessment Summary Assessment Pt performed hip and back focused movements today and patient reported no exacerbations of L hip or low back discomfort. Pt demonstrating ability to go through full ROM of flexion and extension of lumbar spine. Each session has been progressed from previous session and patient has had no increases in pain from exercise progressions. [ End ] Physical Therapy Plan Frequency and Duration Frequency of Treatment 2x/Week Duration of treatment (weeks) 10 Plan of Care Start Date 11/12/22 Plan of Care End Date 02/10/23 Therapeutic Interventions Therapeutic Interventions Gait Training,Home Exercise Program,Joint Mobilizations, Manual Therapy,Neuromuscular Re-education,Orthotic/ Prosthetic Management,Patient/ Caregiver Education,Self-Care/ Home Management,Soft Tissue Mobilization,Taping, Therapeutic Activities, Therapeutic Exercises Modalities Biofeedback,Cold Pack/Ice Massage,Electric Stimulation, Hot Packs,Ultrasound Next Visit Focus/Plan Next Note Type Treatment Note Next Visit Plan TM, HEP ( bridge, sciatic glides, lumbar flexion), sit<> stands, standing extension, rows, walk
--- NOTE | 2022-12-16 09:44 | PT.OTN ---
Current Diagnoses Lumbago with sciatica, left side (12/16/22) Physical Therapy Treatment Note PT-OP-A Visit Information Start: 11/12/22 08:47 Freq: Status: Active Protocol: Document 12/16/22 09:40 ED (Rec: 12/16/22 09:44 ED [id number]) Out-Patient Physical Therapy Visit Information Visit Information Visit Type Treatment Note Visit Note 09/25 Visit Start Time 09:00 Visit Stop Time 09:40 Total Visit Minutes 40 Visit Number 8 PT-OP-B Current Condition Start: 11/12/22 08:47 Freq: Status: Active Protocol: Document 11/12/22 09:32 ED (Rec: 11/12/22 09:44 ED [id number]) Current Condition History of Current Condition Onset Date May Current Complaints low back pain History of Current Condition Pt states that he has had low back pain since around May 2022. He notes that the pain is constant and he spends a large part of his day lying down d/t back pain. He has tried acupuncture which helped somewhat but also the animal care supervisor told him to stop eating dairy and sugars as they are pro-inflammatory. Pt denies having tried any particular exercises at home for pain relief or rehabilitation purposes. he does endorse L radicular pain down the back of his leg and into his calf. He notes that he will notice those symptoms when he is standing for too long as well. PT-OP-C Subjective Start: 11/12/22 08:47 Freq: Status: Active Protocol: Document 12/16/22 09:40 ED (Rec: 12/16/22 09:44 ED [id number]) OP-PT Subjective Patient Comments Patient Comments Pt states he sees a back specialist tomorrow. He reports that he is maybe 20% better since starting PT; he is noticing he can walk further and has less overall pain. PT-OP-K Range of Motion Start: 11/12/22 08:47 Freq: Status: Active Protocol: Document 11/12/22 09:32 ED (Rec: 11/12/22 09:44 ED [id number]) Lumbar Spine Range of Motion Lumbar Spine Active Testing Position Sitting Flexion 35 Extension 5 ROM Limitations Pain PT-OP-L Special Tests Start: 11/12/22 08:47 Freq: Status: Active Protocol: Document 11/12/22 09:32 ED (Rec: 11/12/22 09:44 ED [id number]) Special Tests Lumbar Spine Special Tests Slump Test Results + PT-OP-Q Treatments Start: 11/12/22 08:47 Freq: Status: Active Protocol: Document 12/16/22 09:40 ED (Rec: 12/16/22 09:44 ED [id number]) Cardio Equipment Treadmill Duration (Minutes) 5 Speed 4 Incline 1.8 Other beginning Therapeutic Exercises Sitting Exercises OH press Sitting Exercise Name seated unilateral OH press Resistance 10# Equipment Used db Reps/Minutes 5c07-66 lat pull down Resistance L3 Reps/Minutes 8r13-63 PB lumbar flexion Equipment Used PB Reps/Minutes 9b80-19 Standing Exercises banded walk Standing Exercise Name lateral banded walk Resistance turquoise loop band Reps/Minutes 3x[address] row Standing Exercise Name unilateral row Resistance L4 Equipment Used cable column Reps/Minutes 4x10 Other Exercises suitcase carry Other Exercise Name suitcase carry Resistance 20# Equipment Used db Reps/Minutes 3x40 feet Therapeutic Activity Therapeutic Activity hip hinge Name bent over row Reps/Minutes 3x10 Comments 10# dowel squat Name STS Reps/Minutes 3x10 Comments 10# PT-OP-T Assessment and Plan Start: 11/12/22 08:47 Freq: Status: Active Protocol: Document 12/16/22 09:40 ED (Rec: 12/16/22 09:44 ED [id number]) Physical Therapy Assessment Goals Oswestry Impairment oswestry Long-Term Goal (LTG) Pt will improve Oswestry score by >10 points to a score <26/ 50. LTG Duration 6-8 weeks walking tolerance Impairment walking toleranc Short Term Goal (STG) Pt will be able to ambulate for 10 consecutive minutes c/o low back symptoms. STG Duration 3 weeks Long-Term Goal (LTG) Pt will be able to ambulate for 20 consecutive minutes c/o low back symptoms. LTG Duration 6-8 weeks % improvement Impairment % improvement Short Term Goal (STG) Pt will report 15% improvement in low back pain intensity/ frequency. STG Duration 3 weeks -MET Long-Term Goal (LTG) Pt will report 50% improvement in low back pain intensity/ frequency. LTG Duration 6-8 weeks HEP Impairment HEP Short Term Goal (STG) Pt will report performing HEP >4 days/week. STG Duration 3 weeks Outdoor Recreation Specialist Goal (LTG) Pt will report performing HEP >4 days/week. LTG Duration 6-8 weeks Assessment Summary Assessment Pt reporting improvements in pain and functional mobility since starting PT. Session worked on various movements for LEs and core including sit <>stands, seated lat pull downs, weighted carries, and bent over row. No pain noted during any movements today. Physical Therapy Plan Frequency and Duration Frequency of Treatment 2x/Week Duration of treatment (weeks) 10 Plan of Care Start Date 11/12/22 Plan of Care End Date 02/10/23 Therapeutic Interventions Therapeutic Interventions Gait Training,Home Exercise Program,Joint Mobilizations, Manual Therapy,Neuromuscular Re-education,Orthotic/ Prosthetic Management,Patient/ Caregiver Education,Self-Care/ Home Management,Soft Tissue Mobilization,Taping, Therapeutic Activities, Therapeutic Exercises Modalities Biofeedback,Cold Pack/Ice Massage,Electric Stimulation, Hot Packs,Ultrasound Next Visit Focus/Plan Next Note Type Treatment Note Next Visit Plan Oswestry, TM, HEP ( bridge, sciatic glides, lumbar flexion ), sit<>stands, standing extension, rows, walk
--- NOTE | 2022-12-18 09:43 | PT.OTN ---
Current Diagnoses Lumbago with sciatica, left side (12/18/22) Physical Therapy Treatment Note PT-OP-A Visit Information Start: 11/12/22 08:47 Freq: Status: Active Protocol: Document 12/18/22 09:39 ED (Rec: 12/18/22 09:43 ED [id number]) Out-Patient Physical Therapy Visit Information Visit Information Visit Type Treatment Note Visit Note 10/26 Visit Start Time 09:00 Visit Stop Time 09:40 Total Visit Minutes 40 Visit Number 9 PT-OP-B Current Condition Start: 11/12/22 08:47 Freq: Status: Active Protocol: Document 11/12/22 09:32 ED (Rec: 11/12/22 09:44 ED [id number]) Current Condition History of Current Condition Onset Date May Current Complaints low back pain History of Current Condition Pt states that he has had low back pain since around May 2022. He notes that the pain is constant and he spends a large part of his day lying down d/t back pain. He has tried acupuncture which helped somewhat but also the bradder told him to stop eating dairy and sugars as they are pro-inflammatory. Pt denies having tried any particular exercises at home for pain relief or rehabilitation purposes. he does endorse L radicular pain down the back of his leg and into his calf. He notes that he will notice those symptoms when he is standing for too long as well. PT-OP-C Subjective Start: 11/12/22 08:47 Freq: Status: Active Protocol: Document 12/18/22 09:39 ED (Rec: 12/18/22 09:43 ED [id number]) OP-PT Subjective Patient Comments Patient Comments Pt states they saw the back specialist who informed him he has facet arthropathy and would benefit from injections. Pt states that he is not interested in injections at this time; he still wants to pursue an MRI. PT-OP-K Range of Motion Start: 11/12/22 08:47 Freq: Status: Active Protocol: Document 11/12/22 09:32 ED (Rec: 11/12/22 09:44 ED [id number]) Lumbar Spine Range of Motion Lumbar Spine Active Testing Position Sitting Flexion 35 Extension 5 ROM Limitations Pain PT-OP-L Special Tests Start: 11/12/22 08:47 Freq: Status: Active Protocol: Document 11/12/22 09:32 ED (Rec: 11/12/22 09:44 ED [id number]) Special Tests Lumbar Spine Special Tests Slump Test Results + PT-OP-Q Treatments Start: 11/12/22 08:47 Freq: Status: Active Protocol: Document 12/18/22 09:39 ED (Rec: 12/18/22 09:43 ED [id number]) Cardio Equipment Treadmill Duration (Minutes) 5 Speed 4 Incline 1.8 Other beginning Therapeutic Exercises Supine Exercises reverse crunch Reps/Minutes 1x20 Prone Exercises press up <> chetan pose Reps/Minutes 1x10 Sitting Exercises row Sitting Exercise Name roeglio curl Resistance L3 Equipment Used cable column Reps/Minutes 1x20 lat pull down Resistance L3 Reps/Minutes 0t22-00 PB lumbar flexion Equipment Used PB Reps/Minutes 3w54-70 Therapeutic Activity Therapeutic Activity hip hinge Name tandem RDL Reps/Minutes 3x8-10 Comments 10# PT-OP-T Assessment and Plan Start: 11/12/22 08:47 Freq: Status: Active Protocol: Document 12/18/22 09:39 ED (Rec: 12/18/22 09:43 ED [id number]) Physical Therapy Assessment Goals Oswestry Impairment oswestry Child Support Investigator Goal (LTG) Pt will improve Oswestry score by >10 points to a score <26/ 50. LTG Duration 6-8 weeks walking tolerance Impairment walking toleranc Short Term Goal (STG) Pt will be able to ambulate for 10 consecutive minutes c/o low back symptoms. STG Duration 3 weeks Snf Goal (LTG) Pt will be able to ambulate for 20 consecutive minutes c/o low back symptoms. LTG Duration 6-8 weeks % improvement Impairment % improvement Short Term Goal (STG) Pt will report 15% improvement in low back pain intensity/ frequency. STG Duration 3 weeks -MET Snf Goal (LTG) Pt will report 50% improvement in low back pain intensity/ frequency. LTG Duration 6-8 weeks HEP Impairment HEP Short Term Goal (STG) Pt will report performing HEP >4 days/week. STG Duration 3 weeks Snf Goal (LTG) Pt will report performing HEP >4 days/week. LTG Duration 6-8 weeks Assessment Summary Assessment Pt reporting improvements in pain and functional mobility since starting PT. Session worked on various movements for LEs and core including sit <>stands, seated lat pull downs, weighted carries, and bent over row. No pain noted during any movements today. Physical Therapy Plan Frequency and Duration Frequency of Treatment 2x/Week Duration of treatment (weeks) 10 Plan of Care Start Date 11/12/22 Plan of Care End Date 02/10/23 Therapeutic Interventions Therapeutic Interventions Gait Training,Home Exercise Program,Joint Mobilizations, Manual Therapy,Neuromuscular Re-education,Orthotic/ Prosthetic Management,Patient/ Caregiver Education,Self-Care/ Home Management,Soft Tissue Mobilization,Taping, Therapeutic Activities, Therapeutic Exercises Modalities Biofeedback,Cold Pack/Ice Massage,Electric Stimulation, Hot Packs,Ultrasound Next Visit Focus/Plan Next Note Type Progress Note Next Visit Plan Oswestry, TM, HEP ( bridge, sciatic glides, lumbar flexion ), sit<>stands, standing extension, rows, walk
--- NOTE | 2022-12-23 08:35 | PT.OPPN ---
Current Diagnoses Lumbago with sciatica, left side (12/23/22) Physical Therapy Progress Note PT-OP-A Visit Information Start: 11/12/22 08:47 Freq: Status: Active Protocol: Document 12/23/22 08:27 ED (Rec: 12/23/22 08:35 ED [id number]) Out-Patient Physical Therapy Visit Information Visit Information Visit Type Progress Note Visit Note 11/25 Visit Start Time 07:30 Visit Stop Time 08:15 Total Visit Minutes 45 Visit Number 10 PT-OP-B Current Condition Start: 11/12/22 08:47 Freq: Status: Active Protocol: Document 11/12/22 09:32 ED (Rec: 11/12/22 09:44 ED [id number]) Current Condition History of Current Condition Onset Date May Current Complaints low back pain History of Current Condition Pt states that he has had low back pain since around May 2022. He notes that the pain is constant and he spends a large part of his day lying down d/t back pain. He has tried acupuncture which helped somewhat but also the classroom teacher told him to stop eating dairy and sugars as they are pro-inflammatory. Pt denies having tried any particular exercises at home for pain relief or rehabilitation purposes. he does endorse L radicular pain down the back of his leg and into his calf. He notes that he will notice those symptoms when he is standing for too long as well. PT-OP-C Subjective Start: 11/12/22 08:47 Freq: Status: Active Protocol: Document 12/23/22 08:27 ED (Rec: 12/23/22 08:35 ED [id number]) OP-PT Subjective Patient Comments Patient Comments Pt states they are about 20%- 25% improved since their initial injury. He states he had an MRI this most recent Thursday which found many things in his low back most facet arthritis and herniated disc. Is unsure if he wants to continue with PT after this week. He notes that PT has made the most significant positive impact for his pain compared to other services he has tried. Patient Questionnaires Oswestry Low Back Index Oswestry Score 19 / 50 = 38.0 % Oswestry Impairment 20 to 39% Impaired (Score 20- 39) PT-OP-K Range of Motion Start: 11/12/22 08:47 Freq: Status: Active Protocol: Document 11/12/22 09:32 ED (Rec: 11/12/22 09:44 ED [id number]) Lumbar Spine Range of Motion Lumbar Spine Active Testing Position Sitting Flexion 35 Extension 5 ROM Limitations Pain PT-OP-L Special Tests Start: 11/12/22 08:47 Freq: Status: Active Protocol: Document 11/12/22 09:32 ED (Rec: 11/12/22 09:44 ED [id number]) Special Tests Lumbar Spine Special Tests Slump Test Results + PT-OP-T Assessment and Plan Start: 11/12/22 08:47 Freq: Status: Active Protocol: Document 12/23/22 08:27 ED (Rec: 12/23/22 08:35 ED [id number]) Physical Therapy Assessment Goals Oswestry Impairment oswestry Endoscopy Registered Nurse Goal (LTG) Pt will improve Oswestry score by >10 points to a score <26/ 50. LTG Duration 6-8 weeks -MET walking tolerance Impairment walking toleranc Short Term Goal (STG) Pt will be able to ambulate for 10 consecutive minutes c/o low back symptoms. STG Duration 3 weeks -MET Endoscopy Registered Nurse Goal (LTG) Pt will be able to ambulate for 20 consecutive minutes c/o low back symptoms. LTG Duration 6-8 weeks % improvement Impairment % improvement Short Term Goal (STG) Pt will report 15% improvement in low back pain intensity/ frequency. STG Duration 3 weeks -MET Endoscopy Registered Nurse Goal (LTG) Pt will report 50% improvement in low back pain intensity/ frequency. LTG Duration 6-8 weeks HEP Impairment HEP Short Term Goal (STG) Pt will report performing HEP >4 days/week. STG Duration 3 weeks Endoscopy Registered Nurse Goal (LTG) Pt will report performing HEP >4 days/week. LTG Duration 6-8 weeks Progress Towards Goals Progress Towards Goals Progressing Toward Goals Assessment Summary Assessment Pt has improved in back pain and functional mobility since starting PT. Pt improved Oswestry low back score from 36/50 to a 19/50 exceeding MCID criteria of 12.8 points. Pt demonstrates self limiting thoughts and his perspecitive of a biomedical problem rather than a biopsychosocial pain experience has hindered his recovery as he doesn't consider how negative thoughts and expectations can chance the perception of pain and outlook of his injury. Otherwise, patient has been receptive to PT input and has demontrated significant improvements. Physical Therapy Plan Frequency and Duration Frequency of Treatment 2x/Week Duration of treatment (weeks) 10 Plan of Care Start Date 11/12/22 Plan of Care End Date 02/10/23 Therapeutic Interventions Therapeutic Interventions Gait Training,Home Exercise Program,Joint Mobilizations, Manual Therapy,Neuromuscular Re-education,Orthotic/ Prosthetic Management,Patient/ Caregiver Education,Self-Care/ Home Management,Soft Tissue Mobilization,Taping, Therapeutic Activities, Therapeutic Exercises Modalities Biofeedback,Cold Pack/Ice Massage,Electric Stimulation, Hot Packs,Ultrasound Next Visit Focus/Plan Next Note Type Treatment Note Next Visit Plan TM, retro TM HEP ( bridge, sciatic glides, lumbar flexion ), sit<>stands, standing extension, rows, walk
--- NOTE | 2022-12-23 08:35 | PT.OPPOC ---
Physical, Occupational & Speech Therapy At [facility] Current Diagnoses Lumbago with sciatica, left side (12/23/22) Visit Care Team Role Provider Type Isaac Ballesteros MD Attending Provider Physician Family Provider Primary Care Provider Referring Provider Specialty: Family Practice Obstetrics Address: [address] [place], [place] [address], [place], [address] Email: [email or web address] Plan Of Care PT-OP-T Assessment and Plan Start: 11/12/22 08:47 Freq: Status: Active Protocol: Document 12/23/22 08:27 ED (Rec: 12/23/22 08:35 ED [id number]) Physical Therapy Assessment Goals Oswestry Impairment oswestry Tacker Elastic Band Goal (LTG) Pt will improve Oswestry score by >10 points to a score <26/ 50. LTG Duration 6-8 weeks -MET walking tolerance Impairment walking toleranc Short Term Goal (STG) Pt will be able to ambulate for 10 consecutive minutes c/o low back symptoms. STG Duration 3 weeks -MET Tacker Elastic Band Goal (LTG) Pt will be able to ambulate for 20 consecutive minutes c/o low back symptoms. LTG Duration 6-8 weeks % improvement Impairment % improvement Short Term Goal (STG) Pt will report 15% improvement in low back pain intensity/ frequency. STG Duration 3 weeks -MET Retirement Goal (LTG) Pt will report 50% improvement in low back pain intensity/ frequency. LTG Duration 6-8 weeks HEP Impairment HEP Short Term Goal (STG) Pt will report performing HEP >4 days/week. STG Duration 3 weeks Retirement Goal (LTG) Pt will report performing HEP >4 days/week. LTG Duration 6-8 weeks Progress Towards Goals Progress Towards Goals Progressing Toward Goals Assessment Summary Assessment Pt has improved in back pain and functional mobility since starting PT. Pt improved Oswestry low back score from 36/50 to a 19/50 exceeding MCID criteria of 12.8 points. Pt demonstrates self limiting thoughts and his perspecitive of a biomedical problem rather than a biopsychosocial pain experience has hindered his recovery as he doesn't consider how negative thoughts and expectations can chance the perception of pain and outlook of his injury. Otherwise, patient has been receptive to PT input and has demontrated significant improvements. Physical Therapy Plan Frequency and Duration Frequency of Treatment 2x/Week Duration of treatment (weeks) 10 Plan of Care Start Date 11/12/22 Plan of Care End Date 02/10/23 Therapeutic Interventions Therapeutic Interventions Gait Training,Home Exercise Program,Joint Mobilizations, Manual Therapy,Neuromuscular Re-education,Orthotic/ Prosthetic Management,Patient/ Caregiver Education,Self-Care/ Home Management,Soft Tissue Mobilization,Taping, Therapeutic Activities, Therapeutic Exercises Modalities Biofeedback,Cold Pack/Ice Massage,Electric Stimulation, Hot Packs,Ultrasound Next Visit Focus/Plan Next Note Type Treatment Note Next Visit Plan TM, retro TM HEP ( bridge, sciatic glides, lumbar flexion ), sit<>stands, standing extension, rows, walk Plan of Care Dates Plan of Care Start Date 11/12/22 Plan of Care End Date 02/10/23 Electronically Signed by: Cameron Wilson, PT 12/23/22 0835 If you are in agreement with this Plan of Care, please return a signed and dated copy. I have reviewed this Plan of Care and certify that the skilled therapy services above are required to meet the patient?s needs. Physician Signature Date Printed Name and Credentials Clinical Instructor Signature Printed Name and Credentials
--- NOTE | 2022-12-25 10:38 | PT.OPDS ---
Current Diagnoses Lumbago with sciatica, left side (12/25/22) Visit Care Team Role Provider Type Isaac Ballesteros MD Attending Provider Physician Family Provider Primary Care Provider Referring Provider Specialty: Family Practice Obstetrics Address: [address], [place], [address] Email: [email or web address] Visit Number Visit Number 11 Discharge Summary PT-OP-B Current Condition Start: 11/12/22 08:47 Freq: Status: Active Protocol: Document 11/12/22 09:32 ED (Rec: 11/12/22 09:44 ED [id number]) Current Condition History of Current Condition Onset Date May Current Complaints low back pain History of Current Condition Pt states that he has had low back pain since around May 2022. He notes that the pain is constant and he spends a large part of his day lying down d/t back pain. He has tried acupuncture which helped somewhat but also the curve cleaner told him to stop eating dairy and sugars as they are pro-inflammatory. Pt denies having tried any particular exercises at home for pain relief or rehabilitation purposes. he does endorse L radicular pain down the back of his leg and into his calf. He notes that he will notice those symptoms when he is standing for too long as well. PT-OP-C Subjective Start: 11/12/22 08:47 Freq: Status: Active Protocol: Document 12/25/22 10:34 ED (Rec: 12/25/22 10:38 ED [id number]) OP-PT Subjective Patient Comments Patient Comments Pt states that he is ready to be DC'd from PT at this time. Pt states that he has had significant improvemnt since starting PT. He now sees the light at the end of the tunnel and believes he can get back to the activities he used to do like backpacking. PT-OP-K Range of Motion Start: 11/12/22 08:47 Freq: Status: Active Protocol: Document 11/12/22 09:32 ED (Rec: 11/12/22 09:44 ED [id number]) Lumbar Spine Range of Motion Lumbar Spine Active Testing Position Sitting Flexion 35 Extension 5 ROM Limitations Pain PT-OP-L Special Tests Start: 11/12/22 08:47 Freq: Status: Active Protocol: Document 11/12/22 09:32 ED (Rec: 11/12/22 09:44 ED [id number]) Special Tests Lumbar Spine Special Tests Slump Test Results + PT-OP-T Assessment and Plan Start: 11/12/22 08:47 Freq: Status: Active Protocol: Document 12/25/22 10:34 ED (Rec: 12/25/22 10:38 ED [id number]) Physical Therapy Assessment Goals Oswestry Impairment oswestry Receiving Barn Custodian Goal (LTG) Pt will improve Oswestry score by >10 points to a score <26/ 50. LTG Duration 6-8 weeks -MET walking tolerance Impairment walking toleranc Short Term Goal (STG) Pt will be able to ambulate for 10 consecutive minutes c/o low back symptoms. STG Duration 3 weeks -MET Care Home Goal (LTG) Pt will be able to ambulate for 20 consecutive minutes c/o low back symptoms. LTG Duration 6-8 weeks -MET % improvement Impairment % improvement Short Term Goal (STG) Pt will report 15% improvement in low back pain intensity/ frequency. STG Duration 3 weeks -MET Receiving Barn Custodian Goal (LTG) Pt will report 50% improvement in low back pain intensity/ frequency. LTG Duration 6-8 weeks HEP Impairment HEP Short Term Goal (STG) Pt will report performing HEP >4 days/week. STG Duration 3 weeks Receiving Barn Custodian Goal (LTG) Pt will report performing HEP >4 days/week. LTG Duration 6-8 weeks Assessment Summary Assessment Pt feels confident enough to continue his rehabiltation independently. Pt improved Oswestry low back score from 36/50 to a 19/50 exceeding MCID criteria of 12.8 points. Pt has good grasp on acute low back pain and has greater self efficacy after education regarding low back pain and overall prognosis after acute low back pain. Physical Therapy Plan Discharge Physical Therapy Discharge Reasons Goals Met
== END 2022-12-30 10:18 | disposition home or self-care (01) ==
LOC: PHYS 10:00
PROVIDERS: Family Provider Family Medicine; PCP Family Medicine; Referring Provider Family Medicine; Visit Provider Family Medicine
DX: M54.42 Lumbago with sciatica, left side (principal)
CPT/HCPCS: 97110; 97161; 97530